=== PATIENT | male | born 1960 | race Two or more races ===

== ENCOUNTER 2020-05-30 11:22 | Emergency (ER) | payer OTHER ==
[~2020-05-30] VITALS: Ht 167.6 cm; Wt 81.6 kg
[2020-05-30] MEDS ORDERED: SYNTHROID175 MCG (11:39)
[2020-05-30] MEDS ORDERED: PEPCID AC20 MG PO (15:34)
[2020-05-30] MEDS ORDERED: CIPRO500 MG PO (15:34)
== END 2020-05-30 19:07 | disposition home or self-care (01) ==
LOC: ER 11:22
DX: R19.7 Diarrhea, unspecified (principal)